=== PATIENT | female | born 1950 | race Caucasian/White ===

== ENCOUNTER 2017-02-12 22:56 | Emergency (ER) | payer BC ==
[~2017-02-12] VITALS: Ht 158.8 cm; Wt 75.2 kg
[~2017-02-12 22:56] MED LIST: LEVO50TA60 PO
[2017-02-12 23:03] VITALS: TEMP 36.7; Ht 158.8 cm; Wt 75.2 kg
[2017-02-12] MEDS ORDERED: ATOR10TA82 PO (23:56)
[2017-02-12] MEDS ORDERED: ASPI81TA28 PO (23:56)
[2017-02-12] MEDS ORDERED: LEVO50TA PO (23:56)
[2017-02-12] MEDS ORDERED: COEN1CAP37 PO (23:56)
[2017-02-13 00:02] LABS: BASO % 0.7 %; BASO ABS # 0.05 K/uL (0-0.2); COMPLETE YES; EOS % 2.6 %; HEMATOCRIT 41.4 % (37-47); IG% 0.3 %; LYMPH % 33.3 %; LYMPH ABS # 2.54 K/uL (1.2-3.4); MEAN CORPUSCULAR HEMOGLOBIN 29.8 pg (25-34); MEAN CORPUSCULAR HGB CONC 33.1 g/dl (32-36); MEAN PLATELET VOLUME 9.9 fL (7.4-10.4); MONO % 9.8 %; NEUT % 53.3 %; PLATELET COUNT 250 K/uL (130-400); WHITE BLOOD COUNT 7.62 K/uL (4.8-10.8)
[2017-02-13 00:09] LABS: INR 0.9 (0.9-1.1); PROTHROMBIN TIME (PATIENT) 9.9 SECONDS (9.0-12.0)
[2017-02-13 00:34] LABS: ALB/GLOB RATIO 0.9 (0.9-2); ALKALINE PHOSPHATASE 119 U/L (45-117); ALT/SGPT 58 U/L (12-78); AST/SGOT 51 U/L (15-37); BLOOD UREA NITROGEN 19 mg/dl (7-18); BUN/CREATININE RATIO 22.2 (10-20); CALCIUM 8.8 mg/dl (8.5-10.1); CARBON DIOXIDE 24 mmol/L (21-32); CHLORIDE 106 mmol/L (98-107); CREATININE 0.84 mg/dl (0.60-1.20); GLUCOSE 122 mg/dl (70-99); MAGNESIUM 2.1 mg/dl (1.8-2.4); POTASSIUM 3.7 mmol/L (3.5-5.1); SODIUM 138 mmol/L (136-145)
[2017-02-13] MEDS ORDERED: KETOROLAC TROMETHAMINE 30 MG/ML VIAL IV STA (00:43)
--- NOTE | 2017-02-13 01:42 | EMERGENCY ROOM VISIT NOTE ---
History Report prepared by Remi: Nessa Quinonez Under the Supervision of: Dr. Daniela Sarabia D.O. First contact with patient: 23:20 Chief Complaint: CARDIAC ASSESSMENT Stated Complaint: R LOWER JAW PAIN, FATIGUE, DIZZY, SOB, LIGHTHEADED History of Present Illness The patient is a 66 year old female who presents to the Emergency Room with complaints of persistent right jaw pain starting last night. She first noticed the pain when she was going to bed last night. She was able to sleep. During the day, she did not notice much jaw pain. She noticed that her jaw was still sore when going to bed today. The jaw pain does not worsen with chewing, talking , or exertion. She notes that she has been feeling lightheaded and dizzy for the past couple of days. She has been having episodes of lightheadedness. She has had 5-6 episodes in the past 3 days. She had to leave the store in the middle of shopping because she felt like she was overexerting herself. She is feeling more tired and run down than usual. She has been feeling fatigued since having a mini stroke 3 months ago. She was told that she would be tired and exercising will be more difficult while she recovers. She does not feel she is back to normal yet. She notes she has been sleeping a lot. She feels like she cannot breathe as deeply anymore. She feels that she is having more difficulty walking distances that she previously did not have any difficulty with. She does not feel winded with going up steps. She is not dizzy, lightheaded, or SOB currently. She denies any chest pain, palpitations, ear pain, leg swelling, urinary symptoms, change in bowel movement, headache, or blurry vision. She has not seen cardiology before. She has a family history of diabetes and cancer. She denies any history of dental problems or TMJ. She has a history of dysphagia and has some trouble swallowing. She is on a thyroid medication. Source of History: patient Onset: last night Position: jaw (right) Quality: other (sore) Timing: other (persistent) Associated Symptoms: + SOB, + fatigue, No headache, No chest pain, No urinary symptoms Note: Pt reports lightheadedness, dizziness. Pt denies palpitations, ear pain, leg swelling, change in bowel movement, blurry vision. Review of Systems See HPI for pertinent positives & negatives. A total of 10 systems reviewed and were otherwise negative. Past Medical & Surgical Medical Problems: (1) Hypothyroidism Family History Cancer Diabetes mellitus Social History Smoking Status: Never Smoker Marital Status: Current/Historical Medications Scheduled Aspirin (Aspirin Ec), 81 MG PO DAILY Atorvastatin (Lipitor), 10 MG PO DAILY Coenzyme Q10 (Ubidecarenone) (Co Q-10), 200 MG PO DAILY Levothyroxine Sodium (Synthroid), 50 MCG PO DAILY Allergies Coded Allergies: Erythromycin (Verified Adverse Reaction, Intermediate, NAUSEA/VOMITING, ) Physical Exam Vital Signs Date Time Temp Pulse Resp B/P (MAP) Pulse Ox O2 Delivery O2 Flow Rate FiO2 02/13/17 01:48 83 18 141/68 98 02/13/17 01:16 89 98 Room Air 02/13/17 01:10 74 18 142/81 96 Room Air 79 158/95 78 169/90 02/13/17 00:30 68 18 161/88 96 Room Air 02/12/17 23:22 Room Air 02/12/17 23:03 36.7 88 20 164/103 95 Room Air Physical Exam GENERAL: alert, well appearing, well nourished, no distress, non-toxic HEAD: No facial swelling. No mastoid tenderness. EYE EXAM: normal conjunctiva, PERRL and EOM's grossly intact OROPHARYNX: normal dentition, no exudate, no erythema, lips, buccal mucosa, and tongue normal and mucous membranes are moist, uvula midline NECK: supple, no nuchal rigidity, no palpable masses, no lymphadenopathy, non- tender LUNGS: Clear to auscultation. Normal chest wall mechanics HEART: no murmurs, S1 normal and S2 normal ABDOMEN: abdomen soft, non-tender, normo-active bowel sounds, no masses, no rebound or guarding. BACK: Back is symmetrical on inspection and there is no deformity, no midline tenderness, no CVA tenderness. SKIN: no rashes and no bruising UPPER EXTREMITIES: upper extremities are grossly normal. LOWER EXTREMITIES: No pitting edema. NEURO EXAM: Normal sensorium, cranial nerves II-XII grossly intact, normal speech, no gross weakness of arms, no gross weakness of legs. Medical Decision & Procedures ER Provider Diagnostic Interpretation: X-ray: I interpreted the following studies. Chest: A two view study of the chest was reviewed and was negative for cardiomegaly, focal infiltrate, effusion , pulmonary edema, or wide mediastinum. Laboratory Results 02/12/17 23:40 Red Blood Count 4.60, Mean Corpuscular Volume 90.0, Mean Corpuscular Hemoglobin 29.8, Mean Corpuscular Hemoglobin Concent 33.1, Mean Platelet Volume 9.9, Neutrophils (%) (Auto) 53.3, Lymphocytes (%) (Auto) 33.3, Monocytes (%) (Auto) 9.8, Eosinophils (%) (Auto) 2.6, Basophils (%) (Auto) 0.7, Neutrophils # (Auto) 4.06, Lymphocytes # (Auto) 2.54, Monocytes # (Auto) 0.75, Eosinophils # (Auto) 0.20, Basophils # (Auto) 0.05 02/12/17 23:40 Test 02/12/17 23:40 White Blood Count 7.62 K/uL (4.8-10.8) Red Blood Count 4.60 M/uL (4.2-5.4) Hemoglobin 13.7 g/dL (12.0-16.0) Hematocrit 41.4 % (37-47) Mean Corpuscular Volume 90.0 fL (80-100) Mean Corpuscular Hemoglobin 29.8 pg (25-34) Mean Corpuscular Hemoglobin Concent 33.1 g/dl (32-36) Platelet Count 250 K/uL (130-400) Mean Platelet Volume 9.9 fL (7.4-10.4) Neutrophils (%) (Auto) 53.3 % Lymphocytes (%) (Auto) 33.3 % Monocytes (%) (Auto) 9.8 % Eosinophils (%) (Auto) 2.6 % Basophils (%) (Auto) 0.7 % Neutrophils # (Auto) 4.06 K/uL (1.4-6.5) Lymphocytes # (Auto) 2.54 K/uL (1.2-3.4) Monocytes # (Auto) 0.75 K/uL (0.11-0.59) Eosinophils # (Auto) 0.20 K/uL (0-0.5) Basophils # (Auto) 0.05 K/uL (0-0.2) RDW Standard Deviation 46.3 fL (36.4-46.3) RDW Coefficient of Variation 14.0 % (11.5-14.5) Immature Granulocyte % (Auto) 0.3 % Immature Granulocyte # (Auto) 0.02 K/uL (0.00-0.02) Prothrombin Time 9.9 SECONDS (9.0-12.0) Prothromb Time International Ratio 0.9 (0.9-1.1) Anion Gap 8.0 mmol/L (3-11) Est Creatinine Clear Calc Drug Dose 61.6 ml/min Estimated GFR () 82.8 Estimated GFR (Non- 71.4 BUN/Creatinine Ratio 22.2 (10-20) Calcium Level 8.8 mg/dl (8.5-10.1) Magnesium Level 2.1 mg/dl (1.8-2.4) Total Bilirubin 0.6 mg/dl (0.2-1) Aspartate Amino Transf (AST/SGOT) 51 U/L (15-37) Alanine Aminotransferase (ALT/SGPT) 58 U/L (12-78) Alkaline Phosphatase 119 U/L (45-117) Troponin I < 0.015 ng/ml (0-0.045) Pro-B-Type Natriuretic Peptide 45 pg/ml (0-900) Total Protein 7.5 gm/dl (6.4-8.2) Albumin 3.6 gm/dl (3.4-5.0) Globulin 3.9 gm/dl (2.5-4.0) Albumin/Globulin Ratio 0.9 (0.9-2) Thyroid Stimulating Hormone (TSH) 2.660 uIu/ml (0.300-4.500) Chemistry Specimen Hemolysis Laboratory results per my review. Medications Administered Medications (Trade) Dose Ordered Sig/Chrissie Route Start Time Stop Time Status Last Admin Dose Admin Ketorolac Tromethamine (Toradol Inj) 15 mg NOW STAT IV 02/13/17 00:43 02/13/17 00:44 DC 02/13/17 00:59 15 MG ECG Indication: SOB/dyspnea Rate (beats per minute): 80 Rhythm: sinus rhythm Findings: Q waves (V2), other (normal axis, normal intervals, no other acute ischemic change) Comparison ECG Date: 31-Jul-2003 Change: no significant change ED Course 2321: The patient was evaluated in room B8. A complete history and physical exam was performed. 0043: Toradol Inj 15 mg IV. 0104: Upon reevaluation, the patient is feeling better. I discussed the findings and the treatment plan with the patient. She verbalizes agreement and understanding. She will be discharged home after orthostatics and ambulatory pulse ox. Medical Decision Differential diagnoses includes but is not limited to acute coronary syndrome, myocardial infarction, pericarditis, pulmonary embolus, aortic dissection, pneumonia, pneumothorax, musculoskeletal, shingles, esophageal. Heart score 2 Patient well-appearing here in recent atypical symptoms. States fatigue has been going on for several months and thought related to prior intracranial pathology. Patient has noticed slight choice of breath recently, but denies that this is always clearly related to exertion, patient states she has not had to stop any activities area did denies any coming chest pain, however discussed with her the jaw pain could be her anginal:. Patient with reassuring labs and imaging here, no recurrence of any symptoms, and right jaw pain improved with Toradol. Doubt deep space infection, dental abscess, mastoiditis, parotitis, ACS, CHF, dissection, PE. Discussed with patient close follow up with family doctor, continue use of her medications, cardiology evaluation, symptoms to watch and return for, she verbalized understanding was agreeable with plan. Medication Reconcilliation Current Medication List: was personally reviewed by me Blood Pressure Screening Patient's blood pressure: Elevated blood pressure Blood pressure disposition: Elevated BP felt to be situational Impression Primary Impression: right jaw pain Additional Impressions: Lightheadedness Fatigue Scribe Attestation The scribe's documentation has been prepared under my direction and personally reviewed by me in its entirety. I confirm that the note above accurately reflects all work, treatment, procedures, and medical decision making performed by me. Departure Information Dispostion Home / Self-Care Referrals Patricia Thomas D.O. (PCP) Patient Instructions My [facility] Additional Instructions Please continue regular medications as prescribed. Please follow up with your family doctor. Please discuss with them additional cardiology evaluation as a precaution. Please continue to monitor for any changes to your symptoms. If you have any recurrent or worsening jaw pain, develop worsening trouble breathing, increased fatigue, vomiting, fevers, dizziness, chest pain, or you' ve any other new concerns, please return the emergency room. Problem Qualifiers Additional Impressions: Fatigue Fatigue type: unspecified Qualified Codes: R53.83 - Other fatigue
[2017-02-13 01:48] VITALS: BP 141/68; PULSE 83; O2SAT 98
--- NOTE | 2017-02-13 08:53 | DIAGNOSTIC IMAGING REPORT ---
CHEST 2 VIEWS ROUTINE CLINICAL HISTORY: Shortness of breath and jaw pain. COMPARISON STUDY: Chest radiograph December 25, 2015. FINDINGS: A 1.5 cm left midlung nodule is unchanged. Mild left basilar opacity favors atelectasis. There is no consolidation to suggest pneumonia. No pneumothorax or pleural effusion is present. Cardiomediastinal silhouette is normal. A moderate sized hiatal hernia is noted. IMPRESSION: 1. No acute cardiopulmonary findings. 2. No change in a 1.5 cm left midlung nodule. Electronically signed by: Bora Loo M.D. 02/13/2017 8:52 AM Dictated Date/Time: 02/13/2017 8:50 AM
== END 2017-02-13 01:50 | disposition home or self-care (01) ==
LOC: C.EDB 22:57
DX: R68.84 Jaw pain (principal); R42 Dizziness and giddiness; R53.83 Other fatigue; E03.9 Hypothyroidism, unspecified; Z79.82 Long term (current) use of aspirin; Z79.899 Other long term (current) drug therapy; Z88.8 Allergy status to other drugs, medicaments and biological substances; Z80.9 Family history of malignant neoplasm, unspecified; Z83.3 Family history of diabetes mellitus